=== PATIENT | female | born 1990 | race African-American/Black ===

== ENCOUNTER 2017-03-06 17:53 | Emergency (ER) | payer SELFPAY ==
[~2017-03-06] VITALS: Ht 167.6 cm; Wt 127.0 kg
[~2017-03-06 17:53] MED LIST: HYDR1CRE TOP
[2017-03-06 17:56] VITALS: BP 189/84; PULSE 84; RESP 16; TEMP 98.2; O2SAT 98
== END 2017-03-06 18:55 | disposition left against medical advice (07) ==
LOC: NED 17:53
DX: K92.9 Disease of digestive system, unspecified (principal)
CPT/HCPCS: 99281

== ENCOUNTER 2018-01-26 15:56 | Emergency (ER) | payer SELFPAY ==
[~2018-01-26] VITALS: Ht 167.6 cm; Wt 100.0 kg
[2018-01-26 16:19] VITALS: BP 161/68; PULSE 109; RESP 17; TEMP 98.5; O2SAT 100
--- NOTE | 2018-01-26 17:44 | PD ---
HPI Chief Complaint: ENT Complaint Time Seen by Provider: 17:23 Travel History International Travel<30 days: No Contact w/Intl Traveler<30days: No Traveled to known affect area: No History of Present Illness HPI Patient is a 27-year-old female presents emergency department for a chief complaint of dizziness and feeling like she might pass out. Patient initially told triage that was here was here for sinusitis but she states to me that "I know I have sinusitis but really wanted to be evaluated for dizziness". States that she has been sick for the past few days but the dizziness started today, felt more like she was going to pass out then vertiginous symptoms. No chest pain no shortness of breath abdominal pain or vomiting. She does endorse some mild nausea. States no history of anemia and this is never happened to her before. Symptoms mild, constant, duration context and associated symptoms as above PFSH Past Medical History Integumentary: Yes (eczema) ?: Unknown LMP: 01/24/2018 : 1 Para: 1 Social History Alcohol Use: No Tobacco Use: No Substance Use: No Allergies-Medications (Allergen,Severity, Reaction): Coded Allergies: No Known Allergies (Verified Adverse Reaction, Unknown, 01/26/18) Reported Meds & Prescriptions Reported Meds & Active Scripts Active Zofran (Ondansetron HCl) 4 Mg Tab 4 Mg PO Q6HR PRN Penicillin V Potassium 500 Mg Tab 500 Mg PO Q6H 7 Days Meclizine (Meclizine HCl) 25 Mg Tab 25 Mg PO TID PRN Review of Systems Except as stated in HPI: all other systems reviewed are Neg Physical Exam Narrative GENERAL: Well-developed well-nourished overweight female in no obvious distress , appears well and pleasant. SKIN: Focused skin assessment warm/dry. HEAD: Atraumatic. Normocephalic. EYES: Pupils equal and round. No scleral icterus. No injection or drainage. ENT: No nasal bleeding or discharge. Mucous membranes pink and moist. TMs clear bilaterally, oropharynx clear moist. Easily voice. NECK: Trachea midline. No JVD. CARDIOVASCULAR: Regular rate and rhythm. No murmur appreciated. RESPIRATORY: No accessory muscle use. Clear to auscultation. Breath sounds equal bilaterally. GASTROINTESTINAL: Abdomen soft, non-tender, nondistended. Hepatic and splenic margins not palpable. MUSCULOSKELETAL: No obvious deformities. No clubbing. No cyanosis. No edema. NEUROLOGICAL: Awake and alert. Cranial nerves II through XII grossly intact and nonfocal, 5 out of 5 strength in all 4 extremities, cerebellar testing negative, embolus with an even narrow-base gait. PSYCHIATRIC: Appropriate mood and affect; insight and judgment normal. Data Data Last Documented VS Vital Signs Date Time Temp Pulse Resp B/P (MAP) Pulse Ox O2 Delivery O2 Flow Rate FiO2 01/26/18 20:12 101 18 141/70 (93) 100 01/26/18 18:00 Room Air 01/26/18 16:19 98.5 Orders Orders Electrocardiogram (01/26/18 17:43) Complete Blood Count With Diff (01/26/18 17:43) Comprehensive Metabolic Panel (01/26/18 17:43) Magnesium (Mg) (01/26/18 17:43) Prothrombin Time / Inr (Pt) (01/26/18 17:43) Act Partial Throm Time (Ptt) (01/26/18 17:43) Troponin I (01/26/18 17:43) Ecg Monitoring (01/26/18 17:43) Iv Access Insert/Monitor (01/26/18 17:43) Oximetry (01/26/18 17:43) Oxygen Administration (01/26/18 17:43) Sodium Chloride 0.9% Flush (Ns Flush) (01/26/18 17:45) Urinalysis - C+S If Indicated (01/26/18 17:43) Ed Urine Pregnancytest Poc (01/26/18 17:43) Urine Culture (01/26/18 18:30) Ed Discharge Order (01/26/18 19:56) Labs Laboratory Tests Test 01/26/18 18:30 White Blood Count 8.0 TH/MM3 Red Blood Count 4.09 MIL/MM3 Hemoglobin 10.2 GM/DL Hematocrit 32.6 % Mean Corpuscular Volume 79.9 FL Mean Corpuscular Hemoglobin 25.1 PG Mean Corpuscular Hemoglobin Concent 31.4 % Red Cell Distribution Width 16.5 % Platelet Count 374 TH/MM3 Mean Platelet Volume 8.7 FL Neutrophils (%) (Auto) 58.1 % Lymphocytes (%) (Auto) 30.1 % Monocytes (%) (Auto) 9.3 % Eosinophils (%) (Auto) 2.1 % Basophils (%) (Auto) 0.4 % Neutrophils # (Auto) 4.7 TH/MM3 Lymphocytes # (Auto) 2.4 TH/MM3 Monocytes # (Auto) 0.7 TH/MM3 Eosinophils # (Auto) 0.2 TH/MM3 Basophils # (Auto) 0.0 TH/MM3 CBC Comment DIFF FINAL Differential Comment Prothrombin Time 10.1 SEC Prothromb Time International Ratio 1.0 RATIO Activated Partial Thromboplast Time 31.1 SEC Urine Color LIGHT-BROWN Urine Turbidity HAZY Urine pH 6.0 Urine Specific [place] 1.029 Urine Protein 30 mg/dL Urine Glucose (UA) NEG mg/dL Urine Ketones TRACE mg/dL Urine Occult Blood LARGE Urine Nitrite NEG Urine Bilirubin NEG Urine Urobilinogen LESS THAN 2.0 MG/DL Urine Leukocyte Esterase SMALL Urine RBC /hpf Urine WBC 23 /hpf Urine Squamous Epithelial Cells 4 /hpf Urine Bacteria OCC /hpf Urine Mucus FEW /lpf Microscopic Urinalysis Comment CULTURE INDICATED Blood Urea Nitrogen 10 MG/DL Creatinine 0.90 MG/DL Random Glucose 84 MG/DL Total Protein 7.5 GM/DL Albumin 3.6 GM/DL Calcium Level 8.7 MG/DL Magnesium Level 2.0 MG/DL Alkaline Phosphatase 99 U/L Aspartate Amino Transf (AST/SGOT) 12 U/L Alanine Aminotransferase (ALT/SGPT) 17 U/L Total Bilirubin 0.2 MG/DL Sodium Level 141 MEQ/L Potassium Level 3.9 MEQ/L Chloride Level 107 MEQ/L Carbon Dioxide Level 25.9 MEQ/L Anion Gap 8 MEQ/L Estimat Glomerular Filtration Rate 92 ML/MIN Troponin I LESS THAN 0.02 NG/ML [facility] Medical Decision Making Medical Screen Exam Complete: Yes Emergency Medical Condition: Yes Differential Diagnosis Sinusitis, vertigo, labyrinthitis, anemia, arrhythmia. Narrative Course Patient room to the emergency department, she is requesting lab work because she is feeling like she is going to pass out. I think is reasonable to oblige her request given her symptomology. She does have some mild anemia otherwise electrolytes within normal limits creatinine and liver function tests within normal limits. EKG normal. He does have sinusitis and the symptoms probably are due to labyrinthitis just a poor description of vertigo on the patient's part. I discussed that I would recommend symptomatic management for now and follow-up with a primary care physician and she is reasonable to these recommendations. She stable for discharge Diagnosis Primary Impression: Sinusitis Qualified Codes: J32.9 - Chronic sinusitis, unspecified Additional Impressions: Vertigo Weakness Referrals: [facility] Med/Other Pt SpecificInfo: Prescription(s) given Scripts Ondansetron (Zofran) 4 Mg Tab 4 MG PO Q6HR Y for NAUSEA OR VOMITING, #20 TAB 0 Refills Prov: Ismael Horan MD 01/26/18 Penicillin V Potassium (Penicillin V Potassium) 500 Mg Tab 500 MG PO Q6H for Infection for 7 Days, #28 TAB 0 Refills Prov: Ismael Horan MD 01/26/18 Meclizine (Meclizine) 25 Mg Tab 25 MG PO TID Y for VERTIGO, #20 TAB 0 Refills Prov: Ismael Horan MD 01/26/18 Disposition: 01 DISCHARGE HOME Condition: Stable Ismael Horan MD Jan 26, 2018 17:44
[2018-01-26] MEDS ORDERED: SODIUM CHLORIDE 0.9% FLUSH 10 ML FLUSH IVF PRN (17:45)
[2018-01-26 18:00] VITALS: O2SAT 99
[2018-01-26 19:03] LABS: AUTOMATED NEUTROPHIL # 4.7 TH/MM3 (1.8-7.7); BASOPHIL % 0.4 % (0.0-2.0); EOSINOPHIL # 0.2 TH/MM3 (0-0.4); EOSINOPHIL % 2.1 % (0.0-4.0); HEMATOCRIT 32.6 % (35.0-46.0); HEMOGLOBIN 10.2 GM/DL (11.6-15.3); LYMPH % 30.1 % (9.0-44.0); LYMPHOCYTE # 2.4 TH/MM3 (1.0-4.8); MEAN CELL VOLUME 79.9 FL (80.0-100.0); MEAN CORPUSCULAR HEMOGLOBIN 25.1 PG (27.0-34.0); MEAN CORPUSCULAR HGB CONC 31.4 % (32.0-36.0); MEAN PLATELET VOLUME 8.7 FL (7.0-11.0); MONO % 9.3 % (0.0-8.0); MONOCYTE # 0.7 TH/MM3 (0-0.9); NEUT % 58.1 % (16.0-70.0); PLATELET COUNT 374 TH/MM3 (150-450); RED BLOOD COUNT 4.09 MIL/MM3 (4.00-5.30); RED CELL DISTRIBUTION WIDTH 16.5 % (11.6-17.2)
[2018-01-26 19:17] LABS: PROTHROMBIN TIME - PATIENT 10.1 SEC (9.8-11.6)
[2018-01-26 19:32] LABS: ALBUMIN 3.6 GM/DL (3.4-5.0); AST (GOT) 12 U/L (15-37); BICARBONATE 25.9 MEQ/L (21.0-32.0); BLOOD UREA NITROGEN 10 MG/DL (7-18); CALCIUM 8.7 MG/DL (8.5-10.1); CHLORIDE 107 MEQ/L (98-107); GLOMERULAR FILTRATION RATE 92 ML/MIN (>89); GLUCOSE,RANDOM 84 MG/DL (74-106); SODIUM (NA) 141 MEQ/L (136-145)
[2018-01-26 19:37] LABS: ALKALINE PHOSPHATASE 99 U/L (45-117); ALT (GPT) 17 U/L (10-53); TOTAL BILIRUBIN ADULT 0.2 MG/DL (0.2-1.0); TOTAL PROTEIN 7.5 GM/DL (6.4-8.2); TROPONIN I LESS THAN 0.02 NG/ML (0.02-0.05)
[2018-01-26 19:45] LABS: BACTERIA, URINE OCC /hpf; BILIRUBIN, URINE NEG (NEG); BLOOD, URINE LARGE (NEG); GLUCOSE,URINE NEG (NEG); KETONE, URINE TRACE mg/dL (NEG); MUCUS URINE FEW /lpf (OCC); NITRITE,URINE NEG (NEG); SQUAMOUS EPITHELIAL CELL URINE 4 /hpf (0-5); URINE LEUKOCYTE ESTERASE SMALL (NEG)
[2018-01-26 19:51] LABS: URINE COLOR LIGHT-BROWN (YELLW/STRAW)
[2018-01-26] MEDS ORDERED: PENI500T PO (19:56)
[2018-01-26] MEDS ORDERED: MECL-62 PO (19:56)
[2018-01-26] MEDS ORDERED: ZOFR4TAB PO (19:57)
[2018-01-26 20:12] VITALS: BP 141/70
--- NOTE | 2018-01-27 09:11 | EKG ---
Date Performed: 01/26/2018 Time Performed: 18:40:13 PTAGE: 27 years EKG: Sinus rhythm NORMAL ECG NO PREVIOUS TRACING DOCTOR: Per Engel Interpretating Date/Time 01/27/2018 09:10:40
== END 2018-01-26 20:16 | disposition home or self-care (01) ==
LOC: NEPD 15:56
DX: J32.9 Chronic sinusitis, unspecified (principal); R42 Dizziness and giddiness; R53.1 Weakness; R11.0 Nausea
CPT/HCPCS: 80053; 81001; 83735; 84484; 84703; 85025; 85610; 85730; 87077; 87086; 87186; 93005; 99284